=== PATIENT | male | born 1990 ===

== ENCOUNTER 2016-08-31 09:38 | Outpatient (CLI) | payer OTHER ==
--- NOTE | 2016-08-31 12:41 | Ultrasound Report ---
ULTRASOUND TESTICULAR DOPPLER COMPLETE History: Enlarged left testicle, left testicular pain. Technique: Trans-scrotal ultrasound with spectral doppler interrogation. Findings: The right testicle measures 5.4 x 2.7 x 3.6 cm. The left testicle measures 5.4 x 2.8 x 3.8 cm. There is no evidence for testicular cyst, mass, calcifications or hyperemia on color Doppler. Both epididymides are within normal limits. 4 mm right epididymal head cyst is noted. Trace bilateral hydroceles are identified. Moderate left varicocele. Spectral Doppler waveforms demonstrate arterial flow to both testicles. IMPRESSION: No evidence for testicular mass, inflammation or torsion. 4 mm right epididymal head cyst. Trace bilateral hydroceles. Moderate left varicocele.
== END 2016-08-31 09:39 | disposition home or self-care (01) ==
LOC: US 09:38
PROVIDERS: ATTEND General Practice
DX: D29.8 Benign neoplasm of other specified male genital organs (principal); N50.3 Cyst of epididymis; N43.3 Hydrocele, unspecified; I86.1 Scrotal varices
CPT/HCPCS: 93975